=== PATIENT | female | born 1955 | race Caucasian/White ===

== ENCOUNTER 2020-01-01 09:55 | Emergency (ER) | payer MEDICARE, MEDICAID ==
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
--- NOTE | 2020-01-01 11:16 | CR ---
Chest: Portable view of the chest was obtained. Comparison: No prior chest imaging. Heart is mildly enlarged. Stent is noted within the aortic arch. Tortuous thoracic aorta is also noted. Lungs are clear with no acute parenchymal change. Surgical clips are seen overlying the lung apex on the left side. Scoliosis is present within the spine. Impression: 1. Cardiomegaly. Other findings as noted above. 2. Nothing acute is appreciated. Diagnostic code #2 Study was dictated in MDT
== END 2020-01-01 13:20 ==
LOC: JD.ED 09:55
DX: I44.2 Atrioventricular block, complete (principal); J44.9 Chronic obstructive pulmonary disease, unspecified; I10 Essential (primary) hypertension; F31.9 Bipolar disorder, unspecified; F20.9 Schizophrenia, unspecified; E03.9 Hypothyroidism, unspecified; Z79.82 Long term (current) use of aspirin; Z79.899 Other long term (current) drug therapy; Z87.891 Personal history of nicotine dependence
CPT/HCPCS: 36415; 71045; 71045-26; 80053; 81001; 83735; 84443; 84484; 85007; 85027; 85610; 93005; 93010; 99285; 99285-25